=== PATIENT | male | born 1965 | race Caucasian/White ===

== ENCOUNTER 2018-12-28 15:26 | Emergency (ER) | payer OTHER ==
[~2018-12-28] VITALS: Ht 170.2 cm; Wt 83.2 kg
[2018-12-28] MEDS ORDERED: OXYC1TAB23 PO (15:36)
[2018-12-28] MEDS ORDERED: APAP325T4 PO (15:36)
[2018-12-28] MEDS ORDERED: AMIT50TA PO (15:36)
[2018-12-28] MEDS ORDERED: ECOT81TA5 PO (15:36)
[2018-12-28] MEDS ORDERED: VITA500C24 PO (15:36)
[2018-12-28] MEDS ORDERED: METO25TA4 PO (15:36)
[2018-12-28] MEDS ORDERED: FERR325T16 PO (15:36)
[2018-12-28] MEDS ORDERED: FOLI1TAB11 PO (15:36)
[2018-12-28] MEDS ORDERED: HYDR12.55 PO (15:36)
[2018-12-28 16:09] LABS: BASO # 0.1 10^3/uL (0.0-0.2); BASO % 0.6 % (0.0-1.0); EOS # 0.3 10^3/uL (0.0-0.50); EOS % 2.9 % (0.0-3.0); HEMOGLOBIN 15.1 g/dl (13.5-17.5); LYMPH # 2.4 10^3/uL (1.5-4.5); LYMPH % 25.1 % (24.0-44.0); MEAN CORPUSCULAR HEMOGLOBIN 29.5 pg (27.0-33.0); MEAN CORPUSCULAR HGB CONC 34.3 g/dl (32.0-36.5); MEAN CORPUSCULAR VOLUME 86.1 fl (80.0-96.0); MONO # 0.9 10^3/uL (0.0-0.8); MONO % 9.2 % (0.0-5.0); NEUTROPHILS # 5.8 10^3/uL (1.8-7.7); PLATELET COUNT, AUTOMATED 340 10^3/uL (150-450); RED BLOOD COUNT 5.11 10^6/uL (4.30-6.10); WHITE BLOOD COUNT 9.4 10^3/uL (4.0-10.0)
[2018-12-28] MEDS ORDERED: ISOVUE-370 76% 100ML VIAL (Q9967) As Ordered ONE (16:10)
[2018-12-28] MEDS ORDERED: NS 500 ML IV ONE (16:15)
[2018-12-28 16:19] LABS: INR 0.97; PARTIAL THROMBOPLASTIN TIME 28.8 SECONDS (25.4-37.6)
[2018-12-28 16:30] LABS: ERYTHROCYTE SEDIMENTATION RATE 51 mm/hr (0-20)
--- NOTE | 2018-12-28 16:30 | REP ---
Clinical: Chest pain. Comparison: None. Findings: Mediastinum and cardiac silhouette are normal. Linear fibroatelectatic change extending from the right hilum in the mid lung zone may represent chronic scarring versus plate-like atelectasis. No further consolidation. No obvious effusion. No pneumothorax. Skeletal structures intact. Impression: Linear fibroatelectatic changes in the right mid lung zone may represent acute versus chronic change. Electronically Signed by Javier Trejo MD 12/28/2018 04:23 P
[2018-12-28 16:41] LABS: ALBUMIN 3.8 GM/DL (3.2-5.2); ALT/SGPT 31 U/L (12-78); BILIRUBIN,DIRECT 0.2 MG/DL (0.0-0.2); BILIRUBIN,TOTAL 0.5 MG/DL (0.2-1.0); C REACTIVE PROTEIN QUANTITATIV 7.31 MG/DL (0.00-0.30); CK-MB VALUE MASS < 1.0 NG/ML (<3.6); CPK CREATINE PHOSPHOKINASE 73 U/L (39-308); FREE T4 1.14 NG/DL (0.76-1.46); LIPASE 68 U/L (73-393); MB/CK RELATIVE INDEX 1.37 (< OR =4); THYROID STIMULATING HORMONE 0.918 uIU/ML (0.358-3.740); TOTAL PROTEIN 7.3 GM/DL (6.4-8.2); TROPONIN I 0.14 NG/ML (< 0.10)
--- NOTE | 2018-12-28 16:44 | REP ---
Clinical: Acute chest pain. Technique: Axial contrast enhanced images from the thoracic inlet to the upper abdomen using 100 ml Isovue 370 intravenous contrast material with coronal and sagittal re-formations. Findings: A small amount of subcutaneous emphysema is appreciated in the right anterior chest wall which may be related to recent procedure. Satisfactory enhancement of the pulmonary vasculature is achieved and no filling defects are identified to suggest pulmonary embolus. Small right pleural effusion with right basilar atelectasis is appreciated along with ill-defined area of plate-like consolidation possibly within the medial basilar right upper lobe. Associated mediastinal and right hilar adenopathy is appreciated. Underlying chronic COPD and interstitial changes are appreciated bilaterally. Atherosclerotic changes to the thoracic aorta noted. Ascending aorta measures 3.9 cm maximal diameter. Aortic valve repair noted. No cardiomegaly or pericardial effusion. Osseous structures are intact. Impression: 1. Small amount of subcutaneous emphysema in the right anterior chest wall likely related to recent procedure. 2. No evidence for pulmonary embolus. 3. Small right pleural effusion along with right basilar atelectasis as well as area of linear plate-like consolidation along the basilar right upper lobe and reactive adenopathy requires followup to resolution. 4. Further chronic changes as noted above. Thoracic aorta is normal caliber without aneurysm or dissection. Heart and pericardium are normal. Bilateral lung wilson are well aerated and clear without acute pulmonary parenchymal consolidation or atelectasis. No nodule or mass lesion. No pleural effusion/reaction. No pneumothorax. No adenopathy. Impression: No evidence for pulmonary embolus. No acute pleuroparenchymal or mediastinal process. Electronically Signed by Javier Trejo MD 12/28/2018 04:35 P
[2018-12-28] MEDS ORDERED: NS 1,000 ML IV ONE (17:00)
[2018-12-28 17:27] VITALS: BP 145/90
--- NOTE | 2018-12-28 19:47 | ECGEPIP ---
[facility] - ED Test Date: 2018-12-28 Pat Name: LISBET JOHNS Department: Room: - Gender: Male Glass [employer]r: ROBE : 1965 Requested By: Bala Dexter Order Number: [id number] Reading MD: Bala Dexter Measurements Intervals [place] Rate: 106 P: 27 UT: 191 QRS: 23 QRSD: 100 T: 39 QT: 309 QTc: 411 Interpretive Statements SINUS TACHYCARDIA POSSIBLE LEFT ATRIAL ENLARGEMENT POSSIBLE INFERIOR MYOCARDIAL INFARCTION, PROBABLY OLD DELAYED R WAVE PROGRESSION NONSPECIFIC ST T WAVE CHANGES ABNORMAL RHYTHM ECG NO OLD ECG FOR COMPARISON Electronically Signed on 12-28-2018 19:47:46 EDT by Bala Dexter
== END 2018-12-28 17:30 | disposition short-term general hospital (02) ==
LOC: M ED 15:26
DX: R61 Generalized hyperhidrosis (principal); R79.89 Other specified abnormal findings of blood chemistry; R00.0 Tachycardia, unspecified; R94.31 Abnormal electrocardiogram [ECG] [EKG]; I10 Essential (primary) hypertension; Z87.891 Personal history of nicotine dependence; F12.10 Cannabis abuse, uncomplicated; Z79.82 Long term (current) use of aspirin; Z79.899 Other long term (current) drug therapy
CPT/HCPCS: 71045; 71275; 80047; 80076; 82550; 82553; 83690; 84439; 84443; 85025; 85610; 85652; 85730; 86140; 87040; 93005; 93041; 94760; 96360; 99285; Q9967

== ENCOUNTER → 2020-06-10 | Outpatient (CLI) | payer OTHER ==
[~2020-06-10] MED LIST: AMIT50TA PO; APAP325T4 PO; ECOT81TA5 PO; FERR325T16 PO; FOLI1TAB11 PO; HYDR12.55 PO; METO25TA4 PO; OXYC1TAB23 PO; VITA500C24 PO
--- NOTE | 2020-06-15 07:18 | SLEEPHOME ---
DATE: 06/10/2020 ORDERED BY: Dr. Reid Diagnostic home sleep testing was performed due to concern for the obstructive sleep apnea syndrome. For testing, a nocturnal T3 respiratory monitoring device was used. Continuous record was made of pulse, oxygen saturation, air flow, chest and abdominal strain, and body position. Nine hours and 59 minutes of data were reviewed. There were 6 hours and 45 minutes marked as time in bed. During the interval marked time in bed, there were 57 respiratory events identified of 10 seconds in duration or greater for a respiratory event index of 8.4. The events were primarily obstructive. Six mixed and central apneas were seen. Events were not associated with specific body posture. Baseline pulse rate was 55. Pulse rate ranged 44 to 77. Baseline saturation was 91%. Saturations fell to 83%. Testing was performed in both the supine and nonsupine positions. IMPRESSION: Abnormal home sleep testing with repetitive respiratory events and oxygen desaturations to 83% with a respiratory event index of 8.4 is consistent with the obstructive sleep apnea syndrome. RECOMMENDATION: The patient should be encouraged to undergo a formal sleep evaluation. [facility]
== END ==
LOC: M SLEEP HO 10:35
PROVIDERS: ATTEND Internal Medicine Cardiovascular Disease
DX: G47.33 Obstructive sleep apnea (adult) (pediatric) (principal); R55 Syncope and collapse

== ENCOUNTER → 2020-11-23 | Outpatient (CLI) | payer OTHER ==
[~2020-11-23] MED LIST changes: +FERR324T21 PO; -FERR325T16 PO
--- NOTE | 2020-11-24 15:08 | SLEEPCENT ---
DATE: 11/23/2020 ORDERED BY: Cali Monreal Nocturnal polysomnography was performed for the titration of pressure therapy in this patient with a clinical history consistent with the obstructive sleep apnea syndrome, confirmed by home testing revealing a respiratory event index of 8.4. For testing, a ResMed AirFit F20 full-face mask of medium size was used. There was 4 cm of water pressure applied to the circuit, and the lights were extinguished. There was 7 hours and 18 minutes of data reviewed. There was 280 minutes of sleep identified. Sleep latency was prolonged at 65.5 minutes. REM latency was mildly prolonged at 133 minutes. Sleep architecture initially showed fragmentation. Improvement was seen with optimal pressure therapy. There were two REM cycles noted. Overall sleep efficiency was 65.7%. The electrocardiogram showed a sinus rhythm with an average heart rate of 46 beats per minute. Rate ranged 40-64. Occasional premature ventricular contractions (PVCs) were noted. EEG showed reasonably normal waveforms for wake and sleep. Respiratory events were fairly well palliated with CPAP at a pressure of 11. Significant limb activity was noted in the EMG leads, and the limb movement arousal index was 15.9. IMPRESSION: Obstructive sleep apnea syndrome (G47.33). 2. Periodic limb movement disorder (G47.61). Limb movement arousal index 15.9. RECOMMENDATION: Nightly use of pressure therapy at 11 cm of water is sufficient to address the patient's obstructive respiratory events. Interventions to reduce the frequency of arousal from limb activity may further improve the quality of the patient's sleep.
== END ==
LOC: M SLEEP 20:00
PROVIDERS: ATTEND Physician Assistant
DX: G47.33 Obstructive sleep apnea (adult) (pediatric) (principal); G47.61 Periodic limb movement disorder

== ENCOUNTER 2021-03-17 18:15 | Emergency (ER) | payer OTHER ==
[~2021-03-17] VITALS: Ht 170.2 cm; Wt 93.4 kg
[2021-03-17 18:15] VITALS: BP 144/91
[2021-03-17 20:01] LABS: HEMATOCRIT 45.6 % (42.0-52.0); HEMOGLOBIN 15.6 g/dl (13.5-17.5); MEAN CORPUSCULAR HEMOGLOBIN 30.2 pg (27.0-33.0); MEAN CORPUSCULAR HGB CONC 34.2 g/dl (32.0-36.5); MEAN CORPUSCULAR VOLUME 88.4 fl (80.0-96.0); PLATELET COUNT, AUTOMATED 263 10^3/uL (150-450); RED BLOOD COUNT 5.16 10^6/uL (4.30-6.10); WHITE BLOOD COUNT 7.2 10^3/uL (4.0-10.0)
[2021-03-17 21:06] LABS: ACETAMINOPHEN LEVEL < 2.0 UG/ML (10.0-30.0); ALBUMIN 4.4 GM/DL (3.2-5.2); ALT/SGPT 50 U/L (12-78); AMPHETAMINES LEVEL URINE NEGATIVE (NEGATIVE); BARBITURATES URINE NEGATIVE (NEGATIVE); BENZODIAZEPINES URINE NEGATIVE (NEGATIVE); BILIRUBIN,DIRECT 0.2 MG/DL (0.0-0.2); BILIRUBIN,TOTAL 0.4 MG/DL (0.2-1.0); BLOOD UREA NITROGEN 22 MG/DL (7-18); CANNABINOIDS URINE POSITIVE (NEGATIVE); CARBON DIOXIDE LEVEL 27 MEQ/L (21-32); CHLORIDE LEVEL 105 MEQ/L (98-107); COCAINE METABOLITE URINE NEGATIVE (NEGATIVE); CREATININE FOR GFR 1.18 MG/DL (0.70-1.30); ETHYL ALCOHOL (ETHANOL) < 0.003 % (0.000-0.010); GLOMERULAR FILTRATION RATE > 60.0 (>56); GLUCOSE, FASTING 95 MG/DL (70-100); METHADONE URINE NEGATIVE (NEGATIVE); OPIATES URINE NEGATIVE (NEGATIVE); PHENCYCLIDINE URINE NEGATIVE (NEGATIVE); POTASSIUM SERUM 3.9 MEQ/L (3.5-5.1); SALICYLATE LEVEL 2.2 MG/DL (5.0-30.0); SODIUM LEVEL 137 MEQ/L (136-145)
[2021-03-17] MEDS ORDERED: LORazepam 0.5 MG TAB PO ONE (21:55)
[2021-03-17] MEDS ORDERED: LISI20TA33 PO (21:58)
[2021-03-17] MEDS ORDERED: FURO20TA2 PO (21:58)
[2021-03-17] MEDS ORDERED: ATIV1TAB10 PO (22:01)
== END 2021-03-17 22:09 | disposition home or self-care (01) ==
LOC: M ED 18:15
DX: F41.1 Generalized anxiety disorder (principal); I10 Essential (primary) hypertension; I25.10 Atherosclerotic heart disease of native coronary artery without angina pectoris; G25.81 Restless legs syndrome; Z79.899 Other long term (current) drug therapy; Z79.82 Long term (current) use of aspirin; F17.210 Nicotine dependence, cigarettes, uncomplicated; F12.20 Cannabis dependence, uncomplicated

== ENCOUNTER → 2021-04-08 | Outpatient (CLI) | payer OTHER ==
[~2021-04-08] MED LIST changes: +ATIV1TAB10 PO; +ATOR1TAB21; +FURO20TA2 PO; +LISI20TA33 PO; +SPIR-10
== END ==
LOC: M LABSMTC 09:12
PROVIDERS: ATTEND Anesthesiology
DX: Z01.818 Encounter for other preprocedural examination (principal); Z20.822 Contact with and (suspected) exposure to COVID-19

== ENCOUNTER 2021-04-13 13:04 | Day surgery (SDC) | payer OTHER ==
[~2021-04-13] VITALS: Ht 170.2 cm; Wt 95.3 kg
[~2021-04-13 13:04] MED LIST changes: -ATOR1TAB21; +ATOR1TAB21 PO; +LR 1,000 ML IV ONE; -SPIR-10; +SPIR-10 PO; +ceFAZolin SOD 1 GM in D5W MINI-BAG PLUS 50 ML IV ONE
[2021-04-13] MEDS ORDERED: LIDOCAINE 1% SDV 30ML VIAL As Ordered ONE (14:49)
[2021-04-13] MEDS ORDERED: fentaNYL 100 MCG/2 ML INJECTION (J3010) As Ordered ONE (15:52)
[2021-04-13] MEDS ORDERED: propofoL 200 MG/20 ML VIAL As Ordered ONE (15:53)
[2021-04-13] MEDS ORDERED: MIDAZOLAM INJ 2MG/2ML VIAL (J2250 PER 1MG) As Ordered ONE (16:00)
[2021-04-13 17:10] VITALS: BP 144/82
--- NOTE | 2021-04-14 04:33 | RO ---
OPERATIVE NOTE DATE OF OPERATION: 04/13/2021 PREOPERATIVE DIAGNOSIS: 1. Recurrent near syncopes/syncope. 2. Abnormal electrocardiogram (EKG), first degree AV block. 3. Aortic valve disorder (nonrheumatic) post aortic valve replacement. POSTOPERATIVE DIAGNOSIS: 1. Recurrent near syncopes/syncope. 2. Abnormal electrocardiogram (EKG), first degree AV block. 3. Aortic valve disorder (nonrheumatic) post aortic valve replacement. PROCEDURE: Implantation of loop recorder. SURGEON: Nitin Reid MD ANESTHESIOLOGIST: Dr. Gómez ANESTHESIA: Monitored local anesthesia. CLINICAL SUMMARY: This 56-year-old, single gentleman has a complicated cardiac medical history with weight problem, obstructive sleep apnea, congential aortic valve disorder, status post aortic valve replacement December 23, 2018 with recurrent episodes of near syncope/syncope in the past year, being evaluated by neurology and cardiology. Noninvasive cardiac testing has shown appropriate prosthetic valve function with normal left ventricular systolic function, but mild left atrial enlargement, mild pulmonary hypertension. 45 day event monitor showed only sinus rhythm with first degree AV block and single bout of nocturnal complete heart block of very brief duration with idioventricular escape rhythm and longest pause 3.7 seconds. Heart rate was averaging in the 60s. No symptomatic transmissions. No tachyarrhythmia. Because of his nocturnal bradycardia, he was referred for sleep study and is now on CPAP therapy. Unfortunately, he continues to have episodes of abrupt collapse without prodromal symptoms. On second occasion, suffered blunt head trauma with small lacerations at the base of his nose and right cheek. In light of this, we recommended implantation of permanent loop recorder to further rule out a potential arrhythmia as the etiology. Moderately overweight, barrel chested male laying comfortably. Heart rate 74 beats per minute and regular, blood pressure 103/62 without significant orthostatic blood pressure drop, respiratory rate 16, body mass index (BMI) 31.9. No pallor or cyanosis. Trachea midline. Normal carotid upstrokes and volume. Normal neck vein elevation. Increased anterior/posterior chest diameter with well healed right anterior intercostal scar related to his valve replacement. Good air entry with both lung wilson with no abnormal adventitious sounds. Apical impulse not palpable. Normal S1, accentuated S2. Unable to detect gallop or murmur. Peripheral pulses were symmetrical and normal. No pedal edema. Soft abdomen. Electrocardiogram (EKG) showed sinus rhythm at 75 beats per minute with first degree AV block, low voltages with incomplete right bundle branch block and slow precordial R wave progression related to his body habitus. Blood work showed electrolyte balance with normal BUN and creatinine. BNP level was 85, within normal limits. Complete blood count was also normal. DESCRIPTION OF PROCEDURE: In a fasting state, following informed consent and Ancef 2 gm premedication, the patient was taken to the operating theatre. Numerous electrodes were applied to facilitate continuous electrographic monitoring. The left peristernal region was prepped and draped in the usual fashion. The skin was infiltrated with 1% Xylocaine and a very small incision was made to facilitate implant of his loop recorder in the second intercostal space in a 45 degree angle towards his left foot. The recorded signals were excellent showing P waves and excellent R waves measuring 0.52 millivolts. Device ToonTime, model number Jot Px ICM 4500, serial number [id number]. The small incision was closed using several parmjit and a dry dressing was applied. Estimated blood loss less than 1 mL. No apparent complications. The patient will resume his customary medications and diet. He was instructed to inform only light activities for the next 24 hours and take it easy with his left arm until he returns to our office, April 20, 2021 at 9:30 for a wound check and staple removal. His medications will resume, metoprolol 25mg tablets 1 1/2 tablets twice a day, lisinopril 20 mg daily, furosemide 20 mg daily, aspirin 81 mg daily, atorvastatin 20 mg every night at bedtime, lorazepam 0.5 mg by mouth twice a day as needed for anxiety and amitriptyline 50 mg by mouth every night at bedtime. Should he notice any abnormal erythema, swelling or discharge, he has been encouraged to contact us promptly.
== END 2021-04-13 17:15 | disposition home or self-care (01) ==
LOC: M SDC 13:04
PROVIDERS: ATTEND Internal Medicine Cardiovascular Disease
DX: R55 Syncope and collapse (principal); R94.31 Abnormal electrocardiogram [ECG] [EKG]; I44.0 Atrioventricular block, first degree; I35.9 Nonrheumatic aortic valve disorder, unspecified; Z95.2 Presence of prosthetic heart valve; G47.33 Obstructive sleep apnea (adult) (pediatric); E66.3 Overweight; I11.0 Hypertensive heart disease with heart failure; I50.32 Chronic diastolic (congestive) heart failure; E78.00 Pure hypercholesterolemia, unspecified; K21.9 Gastro-esophageal reflux disease without esophagitis; J45.909 Unspecified asthma, uncomplicated; J44.9 Chronic obstructive pulmonary disease, unspecified; R06.02 Shortness of breath; F41.9 Anxiety disorder, unspecified; Z79.899 Other long term (current) drug therapy; Z79.82 Long term (current) use of aspirin
CPT/HCPCS: 33285; C1764; J0690; J2250; J3010

== ENCOUNTER → 2021-05-11 | Outpatient (CLI) | payer OTHER ==
[~2021-05-11] MED LIST changes: +ISOVUE-370 76% 100ML VIAL As Ordered ONE; -LR 1,000 ML IV ONE; -ceFAZolin SOD 1 GM in D5W MINI-BAG PLUS 50 ML IV ONE
--- NOTE | 2021-05-11 14:42 | REPVR ---
PROCEDURE INFORMATION: Exam: CT Head Without Contrast Exam date and time: 05/11/2021 1:48 PM Age: 56 years old Clinical indication: Altered mental status/memory loss; Additional info: Altered mental status / syncope w/ collapse TECHNIQUE: Imaging protocol: Computed tomography of the head without contrast. Radiation optimization: All CT scans at this facility use at least one of these dose optimization techniques: automated exposure control; mA and/or kV adjustment per patient size (includes targeted exams where dose is matched to clinical indication); or iterative reconstruction. COMPARISON: No relevant prior studies available. FINDINGS: Brain: Diffuse involutional changes compatible with age are present in the brain without acute hemorrhage or acute territorial infarct. Cerebral ventricles: No ventriculomegaly. Paranasal sinuses: Visualized sinuses are unremarkable. No fluid levels. Mastoid air cells: Visualized mastoid air cells are well aerated. Bones/joints: Unremarkable. No acute fracture. Soft tissues: Unremarkable. IMPRESSION: No acute intracranial abnormality. Electronically signed by: Jeremy Garrison On 05/11/2021 14:41:51 PM
--- NOTE | 2021-05-11 14:46 | REPVR ---
PROCEDURE INFORMATION: Exam: CT Angiography Head With Contrast, Arteriography Exam date and time: 05/11/2021 1:48 PM Age: 56 years old Clinical indication: Other: AMS; Additional info: Altered mental status / syncope w/ collapse TECHNIQUE: Imaging protocol: Computed tomography angiography of the head with contrast. Exam focused on the arteries. 3D rendering (Not supervised by radiologist): MIP and/or 3D reconstructed images were created by the technologist. Radiation optimization: All CT scans at this facility use at least one of these dose optimization techniques: automated exposure control; mA and/or kV adjustment per patient size (includes targeted exams where dose is matched to clinical indication); or iterative reconstruction. Contrast material: ISOVUE 370; Contrast volume: 100 ml; Contrast route: INTRAVENOUS (IV); COMPARISON: No relevant prior studies available. FINDINGS: Limited exam due to poor opacification of the [id number] beyond the 2nd order branches. ANTERIOR CIRCULATION: Right internal carotid artery: Mild disease of the cavernous carotid on the right. Right middle cerebral artery: Unremarkable. No occlusion or significant stenosis. No aneurysm. Right anterior cerebral artery: Unremarkable. No occlusion or significant stenosis. No aneurysm. Left internal carotid artery: Mild disease of the cavernous carotid on the left. Left middle cerebral artery: Unremarkable. No occlusion or significant stenosis. No aneurysm. Left anterior cerebral artery: Unremarkable. No occlusion or significant stenosis. No aneurysm. POSTERIOR CIRCULATION: Right vertebral artery: Unremarkable. No occlusion or significant stenosis. No aneurysm. Left vertebral artery: Unremarkable. No occlusion or significant stenosis. No aneurysm. Basilar artery: Unremarkable. No occlusion or significant stenosis. No aneurysm. Right posterior cerebral artery: Unremarkable. No occlusion or significant stenosis. No aneurysm. Left posterior cerebral artery: Unremarkable. No occlusion or significant stenosis. No aneurysm. Brain: Mild diffuse involutional changes are present the brain without acute hemorrhage or acute territorial infarct. Cerebral ventricles: No ventriculomegaly. Orbital cavity: The orbits are intact. Bones/joints: No acute fracture. Mastoid air cells: The mastoids are well aerated. Soft tissues: Unremarkable. Paranasal sinuses: Limited polypoid thickening of the right maxillary sinus without air-fluid levels. IMPRESSION: 1. No large vessel occlusion. 2. No acute intracranial abnormality. Electronically signed by: Jeremy Garrison On 05/11/2021 14:45:51 PM
--- NOTE | 2021-05-11 14:59 | REPVR ---
PROCEDURE INFORMATION: Exam: CT Angiography Neck With Contrast Exam date and time: 05/11/2021 1:48 PM Age: 56 years old Clinical indication: Other: AMS; Additional info: Altered mental status / syncope w/ collapse TECHNIQUE: Imaging protocol: Computed tomography angiography of the neck with contrast. 3D rendering (Not supervised by radiologist): MIP and/or 3D reconstructed images were created by the technologist. Radiation optimization: All CT scans at this facility use at least one of these dose optimization techniques: automated exposure control; mA and/or kV adjustment per patient size (includes targeted exams where dose is matched to clinical indication); or iterative reconstruction. Contrast material: ISOVUE 370; Contrast volume: 100 ml; Contrast route: INTRAVENOUS (IV); COMPARISON: CT ANGIO CHEST 12/28/2018 4:08 PM FINDINGS: Right common carotid artery: Mild narrowing at the origin of the innominate artery. Right internal carotid artery: No stenosis of the extracranial segment. No dissection or occlusion. Right external carotid artery: No occlusion or stenosis of the origin. Left common carotid artery: No stenosis. No dissection or occlusion. Left internal carotid artery: No stenosis of the extracranial segment. No dissection or occlusion. Left external carotid artery: No occlusion or stenosis of the origin. Right vertebral artery: No stenosis. No dissection or occlusion. Left vertebral artery: No stenosis. No dissection or occlusion. Right subclavian artery: Mild narrowing at the origin of the right subclavian artery. Left subclavian artery: Mild narrowing the origin of the left subclavian artery. Aorta: Atherosclerotic changes of the aortic arch. Thyroid: No focal thyroid lesions. Lymph nodes: Small mediastinal nodes are not grossly enlarged. No confluent lymphadenopathy in the neck. Soft tissues: Normal. No significant soft tissue swelling. Bones/joints: No acute fracture. Lungs: Emphysematous changes in the included lung apices. IMPRESSION: No significant carotid stenosis by NASCET criteria. REFERENCES: NASCET CRITERIA. The degree of internal carotid artery stenosis is based on NASCET criteria. Normal is no stenosis. Mild is less than 50% stenosis. Moderate is 50-69% stenosis. Severe is 70% to 99% stenosis. Total occlusion is no detectable patent lumen. Electronically signed by: Jeremy Garrison On 05/11/2021 14:59:20 PM
== END ==
LOC: M RAD 13:30
PROVIDERS: ATTEND Psychiatry & Neurology Neurology
DX: R55 Syncope and collapse (principal); R41.82 Altered mental status, unspecified
CPT/HCPCS: 70450; 70496; 70498; Q9967

== ENCOUNTER → 2021-10-25 | Outpatient (REF) ==
[~2021-10-25] MED LIST changes: -ISOVUE-370 76% 100ML VIAL As Ordered ONE
== END ==
LOC: M PLAIMG 13:26
PROVIDERS: ATTEND Internal Medicine
DX: M54.50 Low back pain, unspecified (principal)

== ENCOUNTER → 2022-01-17 | Outpatient (CLI) | payer OTHER | LOC: M RAD 15:17 | PROVIDERS: ATTEND Internal Medicine Cardiovascular Disease | DX: R06.02 Shortness of breath (principal); J98.4 Other disorders of lung; K76.0 Fatty (change of) liver, not elsewhere classified; J43.9 Emphysema, unspecified ==

== ENCOUNTER → 2022-04-17 | Outpatient (CLI) | payer OTHER ==
[~2022-04-17] MED LIST changes: +METHACHOLINE KIT (J7674) INH ONE
== END ==
LOC: M CARPUL 07:51
PROVIDERS: ATTEND Internal Medicine Pulmonary Disease
DX: R06.00 Dyspnea, unspecified (principal)
CPT/HCPCS: 94070; 95070; J7674

== ENCOUNTER → 2023-02-06 | Outpatient (CLI) | payer OTHER ==
[~2023-02-06] MED LIST changes: -METHACHOLINE KIT (J7674) INH ONE
== END ==
LOC: M RAD 09:47
PROVIDERS: ATTEND Physician Assistant
DX: Z12.2 Encounter for screening for malignant neoplasm of respiratory organs (principal); Z87.891 Personal history of nicotine dependence; J44.9 Chronic obstructive pulmonary disease, unspecified; R91.1 Solitary pulmonary nodule

== ENCOUNTER → 2023-04-12 | Outpatient (CLI) | payer OTHER ==
[2023-04-12 10:30] LABS: ALBUMIN 4.4 G/DL (3.2-5.2); BLOOD UREA NITROGEN 22 MG/DL (9-23); CARBON DIOXIDE LEVEL 26 MMOL/L (20-31); CHLORIDE LEVEL 100 MMOL/L (98-107); GLOMERULAR FILTRATION RATE > 60.0 (>56); GLUCOSE, FASTING 104 MG/DL (60-100); PHOSPHORUS LEVEL 3.6 MG/DL (2.5-4.9); POTASSIUM SERUM 4.2 MMOL/L (3.5-5.1); SODIUM LEVEL 135 MMOL/L (136-145)
== END ==
LOC: M LAB 09:18
PROVIDERS: ATTEND Internal Medicine Cardiovascular Disease
DX: I50.32 Chronic diastolic (congestive) heart failure (principal)

== ENCOUNTER → 2023-06-10 | Outpatient (CLI) | payer OTHER ==
[2023-06-10 12:59] LABS: BASO # 0.1 10^3/uL (0.0-0.2); BASO % 0.8 % (0.0-1.0); EOS # 0.4 10^3/uL (0.0-0.5); EOS % 5.8 % (0.0-3.0); HEMATOCRIT 46.7 % (42.0-52.0); HEMOGLOBIN 15.6 g/dl (13.5-17.5); LYMPH # 2.2 10^3/uL (1.5-5.0); LYMPH % 33.9 % (24.0-44.0); MEAN CORPUSCULAR HEMOGLOBIN 30.2 pg (27.0-33.0); MEAN CORPUSCULAR HGB CONC 33.4 g/dl (32.0-36.5); MEAN CORPUSCULAR VOLUME 90.3 fl (80.0-96.0); MONO # 0.5 10^3/uL (0.0-0.8); MONO % 8.2 % (2.0-8.0); NEUTROPHILS # 3.4 10^3/uL (1.5-8.5); NEUTROPHILS % 51.1 % (36.0-66.0); PLATELET COUNT, AUTOMATED 287 10^3/uL (150-450); RED BLOOD COUNT 5.17 10^6/uL (4.30-6.10); WHITE BLOOD COUNT 6.6 10^3/uL (4.0-10.0)
[2023-06-10 13:33] LABS: ALBUMIN 4.1 G/DL (3.2-5.2); ALKALINE PHOSPHATASE 89 U/L (46-116); ALT/SGPT 41 U/L (7.0-40); AST/SGOT 31 U/L (<34); BILIRUBIN,TOTAL 0.7 MG/DL (0.3-1.2); BLOOD UREA NITROGEN 17 MG/DL (9-23); CALCIUM LEVEL 9.2 MG/DL (8.5-10.1); CARBON DIOXIDE LEVEL 31 MMOL/L (20-31); CHLORIDE LEVEL 104 MMOL/L (98-107); CREATININE FOR GFR 1.16 MG/DL (0.70-1.30); GLOMERULAR FILTRATION RATE > 60.0 (>56); GLUCOSE, FASTING 91 MG/DL (60-100); POTASSIUM SERUM 3.9 MMOL/L (3.5-5.1); SODIUM LEVEL 142 MMOL/L (136-145); TOTAL PROTEIN 7.3 G/DL (5.7-8.2)
== END ==
LOC: M RAD 12:17
PROVIDERS: ATTEND Nurse Practitioner Family
DX: Z01.818 Encounter for other preprocedural examination (principal)

== ENCOUNTER → 2024-03-05 | Outpatient (CLI) | payer MEDICARE | LOC: M PLAIMG 14:28 | PROVIDERS: ATTEND Internal Medicine Cardiovascular Disease | DX: I35.8 Other nonrheumatic aortic valve disorders (principal); I50.32 Chronic diastolic (congestive) heart failure ==

== ENCOUNTER → 2024-04-03 | Outpatient (CLI) | payer MEDICARE | LOC: M RAD 09:32 | PROVIDERS: ATTEND Physician Assistant | DX: Z12.2 Encounter for screening for malignant neoplasm of respiratory organs (principal); Z87.891 Personal history of nicotine dependence ==

== ENCOUNTER → 2024-06-15 | Outpatient (CLI) | payer MEDICARE ==
[2024-06-15 12:34] LABS: BASO # 0.1 10^3/uL (0.0-0.2); BASO % 1.2 % (0.0-1.0); EOS # 0.5 10^3/uL (0.0-0.5); EOS % 7.7 % (0.0-3.0); HEMATOCRIT 46.2 % (42.0-52.0); HEMOGLOBIN 15.5 g/dl (13.5-17.5); LYMPH # 2.3 10^3/uL (1.5-5.0); LYMPH % 37.6 % (24.0-44.0); MEAN CORPUSCULAR HEMOGLOBIN 29.8 pg (27.0-33.0); MEAN CORPUSCULAR HGB CONC 33.5 g/dl (32.0-36.5); MEAN CORPUSCULAR VOLUME 88.8 fl (80.0-96.0); MONO # 0.6 10^3/uL (0.0-0.8); MONO % 9.2 % (2.0-8.0); NEUTROPHILS # 2.7 10^3/uL (1.5-8.5); PLATELET COUNT, AUTOMATED 216 10^3/uL (150-450); WHITE BLOOD COUNT 6.1 10^3/uL (4.0-10.0)
[2024-06-15 12:43] LABS: ERYTHROCYTE SEDIMENTATION RATE 10 mm/hr (0-20)
== END ==
LOC: M LAB 11:46
PROVIDERS: ATTEND Registered Nurse
DX: R78.81 Bacteremia (principal)

== ENCOUNTER → 2024-12-23 | Outpatient (CLI) | payer MEDICARE | LOC: M EKG 13:58 | PROVIDERS: ATTEND Registered Nurse | DX: R00.1 Bradycardia, unspecified (principal); Z53.9 Procedure and treatment not carried out, unspecified reason ==

== ENCOUNTER → 2025-02-03 | Outpatient (REF) | payer MEDICARE, MEDICAID ==
[~2025-02-03] MED LIST changes: +ALPR0.5T3 PO; +DOXE50CA PO; +FARX1TAB3 PO; +HYDR-3363 PO; +INCR1INH IN; +LISI10TA22 PO; +PREG50CA87 PO; +SEMA0.257 SQ; +VENTAER INH
== END ==
LOC: M LAB REF 16:45
PROVIDERS: ATTEND Registered Nurse
DX: I44.2 Atrioventricular block, complete (principal)

== ENCOUNTER 2025-02-14 11:15 | Emergency (ER) | payer MEDICARE, MEDICAID ==
[~2025-02-14] VITALS: Ht 170.2 cm; Wt 86.1 kg
[2025-02-14 12:00] LABS: BASO # 0.1 10^3/uL (0.0-0.2); BASO % 0.8 % (0.0-1.0); EOS # 0.1 10^3/uL (0.0-0.5); EOS % 1.9 % (0.0-3.0); LYMPH # 1.5 10^3/uL (1.5-5.0); LYMPH % 23.9 % (24.0-44.0); MONO # 0.5 10^3/uL (0.0-0.8); MONO % 7.2 % (2.0-8.0); NEUTROPHILS # 4.2 10^3/uL (1.5-8.5); NEUTROPHILS % 65.9 % (36.0-66.0); PLATELET COUNT, AUTOMATED 197 10^3/uL (150-450)
[2025-02-14 12:59] LABS: CK-MB VALUE MASS 1.8 NG/ML (<3.6)
[2025-02-14 13:03] LABS: FREE T4 1.07 NG/DL (0.89-1.76)
[2025-02-14 13:04] LABS: ALT/SGPT 24 U/L (7.0-40); AST/SGOT 23 U/L (<34); CALCIUM LEVEL 9.5 MG/DL (8.5-10.1); CARBON DIOXIDE LEVEL 26 MMOL/L (20-31); CHLORIDE LEVEL 101 MMOL/L (98-107); CPK CREATINE PHOSPHOKINASE 99 U/L (46-171); CREATININE FOR GFR 1.01 MG/DL (0.70-1.30); GLOMERULAR FILTRATION RATE 86.2 (>56); MB/CK RELATIVE INDEX 1.81 (< OR =4); POTASSIUM SERUM 3.9 MMOL/L (3.5-5.1); SODIUM LEVEL 140 MMOL/L (136-145)
[2025-02-14 13:24] LABS: CK-MB VALUE MASS 1.8 NG/ML (<3.6)
[2025-02-14 13:47] LABS: CPK CREATINE PHOSPHOKINASE 97.0 U/L (46-171); MB/CK RELATIVE INDEX 1.85 (< OR =4)
[2025-02-14 14:45] LABS: MAGNESIUM LEVEL 2.0 MG/DL (1.8-2.4)
[2025-02-14 15:30] VITALS: BP 145/72
[2025-02-14 15:45] VITALS: O2SAT 93
[2025-02-14 16:04] VITALS: TEMP 97.8
== END 2025-02-14 16:06 | disposition home or self-care (01) ==
LOC: M ED 11:15
DX: Z45.010 Encounter for checking and testing of cardiac pacemaker pulse generator [battery] (principal); I50.22 Chronic systolic (congestive) heart failure; I11.0 Hypertensive heart disease with heart failure; G47.33 Obstructive sleep apnea (adult) (pediatric); J44.9 Chronic obstructive pulmonary disease, unspecified; Z91.040 Latex allergy status; Z79.51 Long term (current) use of inhaled steroids; Z79.1 Long term (current) use of non-steroidal anti-inflammatories (NSAID); Z79.899 Other long term (current) drug therapy

== ENCOUNTER → 2025-04-19 | Outpatient (CLI) | payer MEDICARE, MEDICAID | LOC: M RAD 14:39 | PROVIDERS: ATTEND Physician Assistant | DX: Z12.2 Encounter for screening for malignant neoplasm of respiratory organs (principal); Z87.891 Personal history of nicotine dependence; R91.1 Solitary pulmonary nodule; K44.9 Diaphragmatic hernia without obstruction or gangrene; I25.10 Atherosclerotic heart disease of native coronary artery without angina pectoris ==

== ENCOUNTER → 2025-05-03 | Outpatient (CLI) | payer MEDICARE, MEDICAID | LOC: M PLARAD 10:26 | PROVIDERS: ATTEND Physician Assistant | DX: R91.1 Solitary pulmonary nodule (principal) | CPT/HCPCS: 78815; A9552 ==